=== PATIENT | female | born 2000 | race Hispanic/Latino ===

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

== ENCOUNTER 2020-02-24 02:09 | Inpatient (IN) | payer BC, OTHER ==
[2020-02-24] MEDS ORDERED: OXYTOCIN/LR 20 UNIT/1,000 ML BAG IV ONE (05:11)
[2020-02-24 05:25] VITALS: BMI 33.6
[2020-02-24] MEDS ORDERED: PROMETHAZINE INJ 25 MG/ML AMP IM PRN (05:25)
[2020-02-24] MEDS ORDERED: METHYLERGONOVINE 0.2MG/ML AMP IM PRN (05:25)
[2020-02-24] MEDS ORDERED: BUTORPHANOL 1 MG/ML INJ IV PRN (05:25)
[2020-02-24] MEDS ORDERED: Ringers Lactate 1,000 ML IV PRN (05:25)
[2020-02-24] MEDS ORDERED: CARBOPROST TROME 250 MCG/ML IM PRN (05:25)
[2020-02-24] MEDS ORDERED: Ringers Lactate 1,000 ML IV SCH (06:00)
[2020-02-24] MEDS ORDERED: OXYTOCIN/LR 20 UNIT/1,000 ML BAG IV SCH ×2 (06:00→12:00)
[2020-02-24 06:05] LABS: Absolute Lymphocytes (CBC) 2.1 K/uL (0.7-4.9); Hematocrit 34.2 % (36.0-45.0); Lymphocytes % 19.8 % (15.3-44.8); MPV 9.2 fL (7.6-11.3); RBC Red Blood Cell Count 4.23 M/uL (3.86-4.86)
[2020-02-24 06:13] LABS: Urine Appearance CLOUDY; Urine Bilirubin NEGATIVE (NEG); Urine Blood NEGATIVE (NEG); Urine Color YELLOW; Urine Glucose NEGATIVE (NEG); Urine Protein NEGATIVE (NEG); Urine Urobilinogen 0.2 mg/dL (0.2-1.0); Urine pH 6.5 (5.0-7.0)
[2020-02-24 06:18] LABS: Urine Microscopic Reflex ORDER UMIC
[2020-02-24 06:31] LABS: Urine Bacteria 20-50 /HPF (<20); Urine Culture Reflex Order REFLEXED; Urine RBC NONE SEEN /HPF (NONE SEEN)
[2020-02-24] MEDS ORDERED: ROPIVACAINE HCL 0.2% 20ML AMP IV ONE (07:28)
[2020-02-24] MEDS ORDERED: FENTANYL CITR 100 MCG/2 ML IV ONE (07:28)
[2020-02-24] MEDS ORDERED: ROPIVACAINE HCL 100 ML IV PRN (07:28)
--- NOTE | 2020-02-24 08:18 | PREOPHP ---
Date of Admission: 02/24/2020 History Of Present Illness: A 19-year-old 2, para 1, 39 weeks' gestation, followed antepartu m without complications, for labor induction. Pros and cons of this thoroughly discussed several melissa es prior to admission. Rh positive. Immune to rubella. Negative strep. Negative COVID. Family History: Noncontributory. Past Surgical History: The patient had hernia surgery at the age of 11. Allergies: SHE HAS NO ALLERGIES. Social History: She does not smoke. Medications: Taking vitamins prior to admission. Physical Examination: HEENT: Clear. Pupils equal, round, and reactive to light and accommodation. Conjunctivae well perf used. No oral, lingual, or buccal lesions. Chest and Lungs: Clear. Heart: Without murmurs, thrills, heaves, or rubs. Breasts: Without masses on previous visits. Abdomen: Term size. Baby is vertex. She is 3.5 cm, still somewhat posterior, 50% effaced, rupture of membranes, clear fluid, asaf regularly. Assessment And Plan: At this point, anticipate more rapid progress. The patient will be requesting epidural when she gets into active labor. Full labor talk given. MARCOS/LACIE Voice ID: [id number]
[2020-02-24] MEDS ORDERED: ACETAMINOPHEN 500 MG TAB PO PRN (11:33)
[2020-02-24] MEDS ORDERED: DIPHENHYDRAMINE 25 MG TAB/CAP PO PRN (11:33)
[2020-02-24] MEDS ORDERED: BISACODYL 10 MG RECTAL SUPP RC PRN (11:33)
[2020-02-24] MEDS ORDERED: Oxycodone HCl/Acetaminophen 1 TAB TAB PO PRN ×2 (11:33)
[2020-02-24] MEDS ORDERED: IBUPROFEN 600 MG TAB PO PRN (11:33)
[2020-02-24] MEDS ORDERED: DOCUSATE NA/SENNA CONC 1 TAB PO PRN (11:33)
[2020-02-24] MEDS: METHYLERGONOVINE 0.2 MG TAB PO SCH ×3 (12:40→20:36)
[2020-02-24] MEDS ORDERED: Ringers Lactate 2,000 ML IV ONE (17:04)
--- NOTE | 2020-02-24 22:27 | OP ---
Surgeon: Joel Balbuena MD A 19-year-old 2, para 1, 39 weeks' gestation. Rh positive, immune to rubella, negative beta strep screen, negative COVID status. No allergies. This morning 3.5 cm, rupture of membranes, clear fluid. Received epidural anesthesia, which gave excellent effect. Second stage of about 15 to 20 m inutes. Spontaneous vaginal delivery of a 7-pound 7-ounce male, Apgars 9 and 9, nuchal cord x2 loose ly. No episiotomy. No laceration. Schultze delivery of the placenta, which inspected and noted to be intact and normal, 300 cc or less blood loss. Tolerated all procedures well. Final Diagnoses: Term intrauterine 39 weeks. Vaginal delivery. Epidural anesthesia. Nuc marilynn cord x2. MARCOS/LACIE Voice ID: [id number] Report ID: [id number]
[2020-02-24 23:35] LABS: RPR (Rapid Plasma Reagin) NON-REACT (NON-REACT)
--- NOTE | 2020-02-25 08:40 | DS ---
Elaine Lou is a 19-year-old 2, para 1, 39 weeks gestation, delivered of a 7 pounds 7 o unces male , Apgars 9 and 9, epidural anesthesia. No episiotomy. No lacerations. Nuchal cord x2. Schultze delivery of the placenta was inspected and noted to be intact and normal. 300 mL or l ess blood loss. Negative beta strep. Negative COVID. Rh positive. Immune to rubella. afebrile, ambulating and voiding. Lochia is normal. Requests analgesics, tramadol. She knows this goes through the breast milk. Full instructions. No post-epidural problems. We offered Tdap and fl u shots. Final Diagnoses: Term intrauterine . Vaginal delivery at 39 weeks. Epidural anesthesia. Nuchal cord x2. Tdap and flu shots offered. MARCOS/LACIE Voice ID: [id number] Report ID: [id number]
[2020-02-25] MEDS ORDERED: Tdap (Diph,Pertuss(Acell),Tet Vac) 0.5 ML SYR IMVAC ONE (11:17)
[2020-02-25 13:24] VITALS: BP 130/70; TEMP 97.6
[2020-02-27 03:27] LABS: HBsAG Nonreactive (Nonreactive)
== END 2020-02-25 14:30 | disposition home or self-care (01) | DRG 807 ==
LOC: 2ND-WC 04:38
PROVIDERS: ADMIT Specialist; ATTEND Specialist
PROC: 10E0XZZ Delivery of Products of Conception, External Approach (ICD-10-PCS; principal; 2020-02-24)
PROC: 10907ZC Drainage of Amniotic Fluid, Therapeutic from Products of Conception, Via Natural or Artificial Opening (ICD-10-PCS; 2020-02-24)
DX: O80 Encounter for full-term uncomplicated delivery (principal); Z37.0 Single live birth; O75.5 Delayed delivery after artificial rupture of membranes; Z3A.39 39 weeks gestation of pregnancy
CPT/HCPCS: 36415; 81003; 81015; 85025; 86592; 86850; 86900; 86901; 87086; 87088; 87340; 90471; 90715; J2210; J2590; J2795; J3010; J7120; U0003